=== PATIENT | female | born 2000 | race Caucasian/White ===

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

== ENCOUNTER → 2021-03-06 | Outpatient (REF) | payer OTHER ==
[~2021-03-06] MED LIST changes: +BUSP10TA
[2021-03-06 16:48] LABS: BASO % 0.5 % (0.0-1.0); EOS % 0.4 % (0.0-3.0); HEMATOCRIT 34.5 % (36.0-47.0); HEMOGLOBIN 11.6 g/dl (12.0-15.5); LYMPH # 1.7 10^3/uL (1.5-5.0); LYMPH % 21.4 % (24.0-44.0); MEAN CORPUSCULAR HEMOGLOBIN 30.5 pg (27.0-33.0); MEAN CORPUSCULAR HGB CONC 33.6 g/dl (32.0-36.5); MEAN CORPUSCULAR VOLUME 90.8 fl (80.0-96.0); MONO # 0.6 10^3/uL (0.0-0.8); NEUTROPHILS # 5.5 10^3/uL (1.5-8.5); NEUTROPHILS % 69.4 % (36.0-66.0); PLATELET COUNT, AUTOMATED 230 10^3/uL (150-450); WHITE BLOOD COUNT 7.9 10^3/uL (4.0-10.0)
[2021-03-06 18:00] LABS: HCG, SERUM QUANTITATIVE 29118 MIU/ML; HEPATITIS C VIRUS ABY INDEX 0.1 INDEX (<0.8); HIV 1&2 SCREEN CENTAUR NEGATIVE (NEGATIVE)
== END ==
LOC: M LAB REF 16:23
PROVIDERS: ATTEND Advanced Practice Midwife
DX: Z32.01 Encounter for pregnancy test, result positive (principal)

== ENCOUNTER → 2021-03-20 | Outpatient (REF) | payer OTHER | LOC: M LAB REF 16:50 | PROVIDERS: ATTEND Advanced Practice Midwife | DX: R30.0 Dysuria (principal) ==

== ENCOUNTER → 2021-08-05 | Outpatient (CLI) | payer OTHER, MEDICAID ==
[~2021-08-05] MED LIST changes: +MULTTAB20 PO
[2021-08-05 13:44] LABS: BASO % 0.2 % (0.0-1.0); EOS # 0.1 10^3/uL (0.0-0.5); EOS % 0.9 % (0.0-3.0); HEMOGLOBIN 10.3 g/dl (12.0-15.5); LYMPH # 1.2 10^3/uL (1.5-5.0); LYMPH % 14.6 % (24.0-44.0); MEAN CORPUSCULAR HEMOGLOBIN 30.7 pg (27.0-33.0); MEAN CORPUSCULAR HGB CONC 33.2 g/dl (32.0-36.5); MEAN CORPUSCULAR VOLUME 92.5 fl (80.0-96.0); MONO # 0.6 10^3/uL (0.0-0.8); MONO % 7.7 % (2.0-8.0); NEUTROPHILS # 6.1 10^3/uL (1.5-8.5); NEUTROPHILS % 75.1 % (36.0-66.0); PLATELET COUNT, AUTOMATED 203 10^3/uL (150-450); RED BLOOD COUNT 3.35 10^6/uL (4.00-5.40); WHITE BLOOD COUNT 8.1 10^3/uL (4.0-10.0)
== END ==
LOC: M LAB 11:20
PROVIDERS: ATTEND Obstetrics & Gynecology
DX: Z34.82 Encounter for supervision of other normal pregnancy, second trimester (principal)

== ENCOUNTER 2021-09-30 18:25 | Outpatient (CLI) | payer OTHER, MEDICAID ==
[~2021-09-30] VITALS: Ht 152.4 cm; Wt 58.3 kg
[2021-09-30] MEDS ORDERED: HOME MED LIST COMPLETE! XX SCH (18:50)
[2021-09-30 18:59] VITALS: BP 116/71
== END 2021-09-30 20:00 | disposition home or self-care (01) ==
LOC: M LDO 18:25
PROVIDERS: ATTEND Advanced Practice Midwife
DX: O26.893 Other specified pregnancy related conditions, third trimester (principal); N89.8 Other specified noninflammatory disorders of vagina; O60.03 Preterm labor without delivery, third trimester; Z3A.35 35 weeks gestation of pregnancy
CPT/HCPCS: 59025; 76815; 87070; G0463

== ENCOUNTER → 2021-10-04 | Outpatient (REF) | payer OTHER, MEDICAID | LOC: M PLALAB 15:04 | PROVIDERS: ATTEND Specialist | DX: Z34.03 Encounter for supervision of normal first pregnancy, third trimester (principal) ==

== ENCOUNTER 2021-10-25 06:37 | Outpatient (CLI) | payer OTHER, MEDICAID ==
[~2021-10-25] VITALS: Ht 152.4 cm; Wt 60.6 kg
[2021-10-25 06:54] VITALS: BP 117/82
[2021-10-25] MEDS ORDERED: HOME MED LIST COMPLETE! XX SCH (07:05)
== END 2021-10-25 10:54 | disposition home or self-care (01) ==
LOC: M LDO 06:37
PROVIDERS: ATTEND Obstetrics & Gynecology
DX: O60.03 Preterm labor without delivery, third trimester (principal); Z3A.38 38 weeks gestation of pregnancy
CPT/HCPCS: 59025; G0463

== ENCOUNTER 2021-10-28 16:05 | Inpatient (IN) | payer OTHER, MEDICAID ==
[~2021-10-28] VITALS: Ht 152.4 cm; Wt 60.8 kg
[2021-10-28] VITALS (12 sets, daily range): BP systolic 117–133; BP diastolic 68–89
[2021-10-28] MEDS ORDERED: HOME MED LIST COMPLETE! XX SCH (16:25)
[2021-10-28] MEDS ORDERED: LACTATED RINGER'S 1000 ML IV STA (18:49)
[2021-10-28] MEDS ORDERED: METHYLERGONOVINE MALEATE 0.2 MG/ML VIAL (J2210) IM PRN (18:50)
[2021-10-28] MEDS ORDERED: OXYTOCIN DRIP 30 UNITS in IV 1 EA IV PRN (18:50)
[2021-10-28] MEDS ORDERED: LIDOCAINE 1% MDV 20ML VIAL INFIL PRN (18:50)
[2021-10-28] MEDS ORDERED: OXYTOCIN INJ 10 UNITS/ML VIAL (J2590) IM PRN (18:50)
[2021-10-28] MEDS ORDERED: CARBOPROST TROMETHAMINE 250 MCG/ML AMP IM PRN (18:50)
[2021-10-28] MEDS ORDERED: TRANEXAMIC ACID INJection 1,000 MG in NS 100 ML IV PRN (18:50)
[2021-10-28 19:09] LABS: BASO % 0.5 % (0.0-1.0); EOS # 0.1 10^3/uL (0.0-0.5); EOS % 0.7 % (0.0-3.0); HEMOGLOBIN 10.5 g/dl (12.0-15.5); LYMPH # 1.9 10^3/uL (1.5-5.0); LYMPH % 23.3 % (24.0-44.0); MEAN CORPUSCULAR HEMOGLOBIN 28.8 pg (27.0-33.0); MEAN CORPUSCULAR HGB CONC 32.8 g/dl (32.0-36.5); MEAN CORPUSCULAR VOLUME 87.7 fl (80.0-96.0); MONO # 0.7 10^3/uL (0.0-0.8); MONO % 8.8 % (2.0-8.0); NEUTROPHILS # 5.3 10^3/uL (1.5-8.5); NEUTROPHILS % 65.8 % (36.0-66.0); PLATELET COUNT, AUTOMATED 193 10^3/uL (150-450); RED BLOOD COUNT 3.65 10^6/uL (4.00-5.40)
[2021-10-28] MEDS ORDERED: LR 1,000 ML IV SCH (19:35)
[2021-10-28] MEDS ORDERED: OXYTOCIN DRIP 30 UNITS in IV 1 EA IV SCH (19:35)
[2021-10-28] MEDS ORDERED: FENTANYL 2MCG/ML ROPIVACAINE 0.2% IN 0.9% NACL 100ML IVBAG As Ordered ONE (23:44)
[2021-10-28] MEDS ORDERED: EPIDURAL/PCA KEYS XX PRN (23:55)
[2021-10-28] MEDS ORDERED: NALOXONE INJ 0.4MG/1ML VIAL (J2310 PER 1MG) IV PRN (23:55)
[2021-10-28] MEDS ORDERED: FENTANYL/ROPIVACAINE/NACL BAG 100 ML EPIDURAL SCH (23:55)
[2021-10-28] MEDS ORDERED: LR 500 ML IV PRN (23:55)
[2021-10-28] MEDS ORDERED: ePHEDrine SULFATE 25 MG/5 ML(5MG/ML) SYRINGE IVP PRN (23:55)
[2021-10-28] MEDS ORDERED: ONDANSETRON 4MG 2ML VIAL IV PRN (23:55)
[2021-10-28] MEDS ORDERED: diphenhydrAMINE 50MG/ML VIAL (J1200) IV PRN (23:55)
[2021-10-29] VITALS (25 sets, daily range): BP systolic 116–148; BP diastolic 66–89
[2021-10-29] MEDS ORDERED: CALCIUM CARBONATE 500 MG CHEW U/D PO ONE (03:00)
[2021-10-29] MEDS ORDERED: MOM 30ML SUSPENSION UDC PO PRN (03:30)
[2021-10-29] MEDS ORDERED: DOCUSATE SODIUM 100MG CAPSULE PO PRN (03:30)
[2021-10-29] MEDS ORDERED: RHOGAM 300 MCG (1500 IU) INJ (J2790) IM SCH (03:30)
[2021-10-29] MEDS ORDERED: IBUPROFEN 800 MG TAB PO PRN (03:30)
[2021-10-29] MEDS ORDERED: ACETAMINOPHEN TAB 650MG DOSE (2X325MG) PO PRN (03:30)
[2021-10-29] MEDS ORDERED: ACETAMINOPHEN 500 MG TAB PO PRN (03:30)
[2021-10-29] MEDS ORDERED: DIBUCAINE 1% OINTMENT 30GM TOP PRN (03:30)
[2021-10-29] MEDS ORDERED: ANUSOL HC CREAM 30GM TOP PRN (03:30)
[2021-10-29] MEDS ORDERED: IBUPROFEN 600MG TAB PO PRN (03:30)
[2021-10-29] MEDS: PRENATAL VITAMINS CHEWABLE TABLET PO SCH (09:00)
[2021-10-30 06:00] VITALS: BP 111/59
[2021-10-30] MEDS: PRENATAL VITAMINS CHEWABLE TABLET PO SCH (10:25)
[2021-10-31] MEDS ORDERED: MEASLES,MUMPS,RUBELLA VACCINE INJ (MMR-II) (90707) SC.IMMUN ONE (09:00)
== END 2021-10-30 13:05 | disposition home or self-care (01) | DRG 807 ==
LOC: M LDO 16:05 → M LDI 19:04 → M OBS 10-29 05:15
PROVIDERS: ADMIT Advanced Practice Midwife; ATTEND Advanced Practice Midwife
PROC: 10E0XZZ Delivery of Products of Conception, External Approach (ICD-10-PCS; principal; 2021-10-29)
PROC: 0HQ9XZZ Repair Perineum Skin, External Approach (ICD-10-PCS; 2021-10-29)
DX: O70.0 First degree perineal laceration during delivery (principal); Z37.0 Single live birth; Z3A.39 39 weeks gestation of pregnancy; Z88.0 Allergy status to penicillin

== ENCOUNTER → 2022-02-06 | Outpatient (REF) | payer OTHER, MEDICAID | LOC: M SFHCPLAZ 16:59 | PROVIDERS: ATTEND Physician Assistant | DX: R05.1 Acute cough (principal) ==

== ENCOUNTER → 2022-02-11 | Outpatient (REF) | payer OTHER, MEDICAID ==
[2022-02-11 18:11] LABS: HEMATOCRIT 35.9 % (36.0-47.0); HEMOGLOBIN 11.5 g/dl (12.0-15.5); MEAN CORPUSCULAR VOLUME 90.7 fl (80.0-96.0); PLATELET COUNT, AUTOMATED 281 10^3/uL (150-450); RED BLOOD COUNT 3.96 10^6/uL (4.00-5.40); WHITE BLOOD COUNT 5.9 10^3/uL (4.0-10.0)
[2022-02-11 19:13] LABS: BLOOD UREA NITROGEN 14 MG/DL (7-18); CALCIUM LEVEL 9.2 MG/DL (8.5-10.1); CARBON DIOXIDE LEVEL 28 MEQ/L (21-32); CHLORIDE LEVEL 102 MEQ/L (98-107); CREATININE FOR GFR 0.75 MG/DL (0.55-1.30); FERRITIN 32 NG/ML (8-252); FREE T4 1.08 NG/DL (0.78-1.33); GLUCOSE, FASTING 88 MG/DL (70-100); POTASSIUM SERUM 4.2 MEQ/L (3.5-5.1); SODIUM LEVEL 135 MEQ/L (136-145); THYROID STIMULATING HORMONE 0.465 uIU/ML (0.463-3.98)
== END ==
LOC: M PLALAB 17:46
PROVIDERS: ATTEND Family Medicine
DX: N92.1 Excessive and frequent menstruation with irregular cycle (principal); R42 Dizziness and giddiness

== ENCOUNTER → 2022-07-25 | Outpatient (REF) | payer OTHER, MEDICAID | LOC: M PLALAB 16:58 | PROVIDERS: ATTEND Nurse Practitioner Family | DX: Z11.3 Encounter for screening for infections with a predominantly sexual mode of transmission (principal) ==

== ENCOUNTER → 2022-08-22 | Outpatient (CLI) | payer OTHER, MEDICAID | LOC: M WHC 09:26 | PROVIDERS: ATTEND Nurse Practitioner Family | DX: R10.2 Pelvic and perineal pain (principal) ==

== ENCOUNTER 2023-04-23 18:42 | Emergency (ER) | payer OTHER ==
[~2023-04-23] VITALS: Ht 154.9 cm; Wt 55.1 kg
[2023-04-23 20:38] LABS: BASO % 0.3 % (0.0-1.0); HEMATOCRIT 36.1 % (36.0-47.0); HEMOGLOBIN 12.1 g/dl (12.0-15.5); LYMPH # 0.6 10^3/uL (1.5-5.0); LYMPH % 5.1 % (24.0-44.0); MEAN CORPUSCULAR HEMOGLOBIN 30.4 pg (27.0-33.0); MEAN CORPUSCULAR HGB CONC 33.5 g/dl (32.0-36.5); MEAN CORPUSCULAR VOLUME 90.7 fl (80.0-96.0); MONO # 0.7 10^3/uL (0.0-0.8); MONO % 5.5 % (2.0-8.0); NEUTROPHILS # 10.4 10^3/uL (1.5-8.5); NEUTROPHILS % 88.8 % (36.0-66.0); PLATELET COUNT, AUTOMATED 208 10^3/uL (150-450); RED BLOOD COUNT 3.98 10^6/uL (4.00-5.40); WHITE BLOOD COUNT 11.7 10^3/uL (4.0-10.0)
[2023-04-23 21:02] LABS: LIPASE 27 U/L (12-53)
[2023-04-23 21:05] LABS: ALBUMIN 4.1 G/DL (3.2-5.2); ALKALINE PHOSPHATASE 61 U/L (46-116); ALT/SGPT 14 U/L (7.0-40); AST/SGOT 13 U/L (<34); BILIRUBIN,DIRECT 0.2 MG/DL (<0.4); BILIRUBIN,TOTAL 0.5 MG/DL (0.3-1.2); BLOOD UREA NITROGEN 10 MG/DL (9-23); CALCIUM LEVEL 8.9 MG/DL (8.5-10.1); CARBON DIOXIDE LEVEL 27 MMOL/L (20-31); CHLORIDE LEVEL 103 MMOL/L (98-107); CREATININE FOR GFR 0.65 MG/DL (0.55-1.30); GLOMERULAR FILTRATION RATE > 60.0 (>60); GLUCOSE, FASTING 102 MG/DL (60-100); POTASSIUM SERUM 3.9 MMOL/L (3.5-5.1); SODIUM LEVEL 137 MMOL/L (136-145); TOTAL PROTEIN 7.6 G/DL (5.7-8.2)
[2023-04-23 21:07] LABS: HCG, SERUM QUALITATIVE NEGATIVE (NEGATIVE)
[2023-04-23 21:16] LABS: RSV AMPLIFICATION NEGATIVE (NEGATIVE)
[2023-04-23] MEDS ORDERED: NS 1,000 ML IV ONE (22:15)
[2023-04-23] MEDS ORDERED: ONDANSETRON 4MG 2ML VIAL IV ONE (22:15)
[2023-04-23] MEDS ORDERED: KETOROLAC 30 MG/ML 1ML VIAL IV ONE (22:15)
[2023-04-24 01:25] VITALS: BP 100/53; TEMP 98.6; O2SAT 98
== END 2023-04-24 01:27 | disposition home or self-care (01) ==
LOC: M ED 18:42
DX: R50.9 Fever, unspecified (principal); F17.200 Nicotine dependence, unspecified, uncomplicated; Z88.0 Allergy status to penicillin
CPT/HCPCS: 73502; 80048; 80076; 81001; 83690; 84703; 85025; 87040; 87486; 87581; 87631; 87633; 87798; 93005; 96361; 96374; 96375; 99285; J1885; J2405

== ENCOUNTER → 2023-05-14 | Outpatient (CLI) | payer OTHER | LOC: M RAD 07:14 | PROVIDERS: ATTEND Family Medicine | DX: H92.01 Otalgia, right ear (principal); R59.0 Localized enlarged lymph nodes; R50.9 Fever, unspecified ==

== ENCOUNTER 2023-12-18 19:40 | Emergency (ER) | payer OTHER, SELFPAY ==
[~2023-12-18] VITALS: Ht 154.9 cm; Wt 57.4 kg
[2023-12-18 19:43] VITALS: BP 123/80; TEMP 98.3; O2SAT 97
[2023-12-18] MEDS ORDERED: IBUP-1022 PO (23:45)
== END 2023-12-19 00:32 | disposition home or self-care (01) ==
LOC: M ED 19:40
DX: S13.4XXA Sprain of ligaments of cervical spine, initial encounter (principal); S06.0X0A Concussion without loss of consciousness, initial encounter; M25.572 Pain in left ankle and joints of left foot; M54.50 Low back pain, unspecified; Y92.410 Unspecified street and highway as the place of occurrence of the external cause; Y93.9 Activity, unspecified; Y99.9 Unspecified external cause status; V49.40XA Driver injured in collision with unspecified motor vehicles in traffic accident, initial encounter; Z88.0 Allergy status to penicillin; Z88.1 Allergy status to other antibiotic agents; Z79.1 Long term (current) use of non-steroidal anti-inflammatories (NSAID)

== ENCOUNTER → 2024-02-13 | Outpatient (REF) | payer OTHER ==
[~2024-02-13] MED LIST changes: +IBUP-1022 PO
== END ==
LOC: M LAB REF 19:08
PROVIDERS: ATTEND Physician Assistant Medical
DX: R30.0 Dysuria (principal)

== ENCOUNTER → 2025-02-27 | Outpatient (CLI) | payer OTHER ==
[~2025-02-27] MED LIST changes: -IBUP-1022 PO; +IBUP600T42 PO
[2025-02-27 13:32] LABS: APPEARANCE, URINE CLEAR (CLEAR); BACTERIA, URINE AUTO NEGATIVE (NEGATIVE); BILIRUBIN, URINE AUTO NEGATIVE (NEGATIVE); BLOOD, URINE BLOOD 1+ (NEGATIVE); GLUCOSE, URINE (UA) AUTO NEGATIVE (NEGATIVE); KETONE, URINE AUTO NEGATIVE (NEGATIVE); LEUKOCYTE ESTERASE, URINE AUTO NEGATIVE (NEGATIVE); MUCUS, URINE LARGE (NEGATIVE); NITRITE, URINE AUTO NEGATIVE (NEGATIVE); PROTEIN, URINE AUTO NEGATIVE (NEGATIVE); RBC, URINE AUTO 0 /HPF (0-3); SPECIFIC GRAVITY URINE AUTO 1.025 (1.002-1.035); SQUAMOUS EPITHELIAL CELL UR AU 4 /HPF (0-6); UROBILINOGEN, URINE AUTO 0.2 mg/dL (0.0-2.0); WBC, URINE AUTO 0 /HPF (0-3)
[2025-02-27 13:36] LABS: ESTIMATED AVERAGE GLUCOSE 97.0 MG/DL (60-110)
[2025-02-27 13:48] LABS: CALCIUM LEVEL 8.7 MG/DL (8.5-10.1); CARBON DIOXIDE LEVEL 26 MMOL/L (20-31); CHLORIDE LEVEL 102 MMOL/L (98-107); CREATININE FOR GFR 0.68 MG/DL (0.55-1.30); GLOMERULAR FILTRATION RATE > 90.0 (>60); POTASSIUM SERUM 3.9 MMOL/L (3.5-5.1); SODIUM LEVEL 137 MMOL/L (136-145)
== END ==
LOC: M LAB 12:31
PROVIDERS: ATTEND Family Medicine
DX: R23.2 Flushing (principal)

== ENCOUNTER 2025-03-22 10:46 | Day surgery (SDC) | payer OTHER ==
[~2025-03-22] VITALS: Ht 152.4 cm; Wt 58.1 kg
[~2025-03-22 10:46] MED LIST changes: +ALBU8.5H; +ATOM40CA9 PO; +BRIN10TA4 PO; +VENL37.598 PO
[2025-03-22 11:34] VITALS: TEMP 97.3
[2025-03-22 11:48] VITALS: BP 102/65; O2SAT 97
== END 2025-03-22 11:51 | disposition home or self-care (01) ==
LOC: M OPP 10:46
PROVIDERS: ATTEND Surgery
DX: K64.4 Residual hemorrhoidal skin tags (principal); K62.5 Hemorrhage of anus and rectum; Z88.0 Allergy status to penicillin; Z88.1 Allergy status to other antibiotic agents; Z91.048 Other nonmedicinal substance allergy status; Z79.899 Other long term (current) drug therapy; F17.290 Nicotine dependence, other tobacco product, uncomplicated